=== PATIENT | male | born 1945 | race Caucasian/White ===

== ENCOUNTER 2021-04-23 10:25 | Emergency (ER) | payer OTHER ==
[~2021-04-23] VITALS: Ht 160 cm; Wt 71.0 kg
[2021-04-23] MEDS ORDERED: MULT-1290 PO (10:35)
[2021-04-23] MEDS ORDERED: GARL600T2 PO (10:35)
[2021-04-23 11:42] VITALS: BP 142/78
== END 2021-04-23 12:18 | disposition home or self-care (01) ==
LOC: EMS 10:29
DX: L03.116 Cellulitis of left lower limb (principal); Q85.00 Neurofibromatosis, unspecified
CPT/HCPCS: 99283

== ENCOUNTER 2022-12-15 14:16 | Emergency (ER) | payer MEDICARE, OTHER ==
[~2022-12-15] VITALS: Ht 154.9 cm; Wt 71.8 kg
[~2022-12-15 14:16] MED LIST: GARL600T2 PO; MULT-1290 PO
[2022-12-15 14:19] VITALS: BP 135/78; PULSE 82; RESP 16; TEMP 98.4
[2022-12-15] MEDS ORDERED: CEPH-558 PO (15:50)
[2022-12-15] MEDS ORDERED: SULF-261 PO (15:51)
== END 2022-12-15 16:08 | disposition home or self-care (01) ==
LOC: EMS 14:25
DX: L03.115 Cellulitis of right lower limb (principal)
CPT/HCPCS: 99283; Z7502